=== PATIENT | male | born 1960 | race Caucasian/White ===

== ENCOUNTER → 2017-01-09 | Outpatient (CLI) | payer OTHER | LOC: CIMAGING 07:15 | PROVIDERS: ATTEND Family Medicine | DX: M13.832 Other specified arthritis, left wrist (principal) | CPT/HCPCS: 73110-PO ==

== ENCOUNTER 2017-03-20 05:37 | Day surgery (SDC) | payer OTHER ==
[2017-03-20] MEDS ORDERED: LR 1,000 ML IV ONE (06:06)
[2017-03-20] MEDS ORDERED: LIDOCAINE 1% 2 ML INJ ID PRN (06:06)
[2017-03-20] MEDS ORDERED: BUPIVACAINE 0.5% 30 ML SDV ONE (06:36)
[2017-03-20] MEDS ORDERED: MIDAZOLAM 2 MG/2 ML VIAL IVP ONE (06:59)
--- NOTE | 2017-03-20 07:02 | PDANEPAE ---
ANE History of Present Illness l wrist ligament repair and scaphoid resection ANE Past Medical History - Cardiovascular History Hx Hypertension: Yes Hx Arrhythmias: No Hx Chest Pain: No Hx Coronary Artery / Peripheral Vascular Disease: No Hx CHF / Valvular Disease: No Hx Palpitations: No - Pulmonary History Hx COPD: No Hx Asthma/Reactive Airway Disease: No Hx Recent Upper Respiratory Infection: No Hx Oxygen in Use at Home: No Hx Sleep Apnea: Yes Sleep Apnea Screening Result - Last Documented: Positive Pulmonary History Comment: REDDY/Central apnea on CPAP/ASV - Neurologic History Hx Cerebrovascular Accident: No Hx Seizures: No Hx Dementia: No - Endocrine History Hx Diabetes: No - Renal History Hx Renal Disorders: No - Liver History Hx Hepatic Disorders: No - Neurological & Psychiatric Hx Hx Neurological and Psychiatric Disorders: No - Cancer History Hx Cancer: Yes Cancer History Comment: BASAL CELL SKIN CANCER REMOVED 2011; 03/15/2017 5 YEAR CHECK UP "ALL CLEAR" - Congenital Disorder History Hx Congenital Disorders: No - GI History Hx Gastrointestinal Disorders: No - Chronic Pain History Chronic Pain: Yes (OCCASIONAL BACK PAIN) - Surgical History Prior Surgeries: 2013 : L BUNIONECTOMY "BONE SPUR". 2012 : MOHS SURGERY - LEFT SIDE NECK, BASAL CELL SKIN CANCER. 2012 : LUMBAR SX - L4-L5 MICRODISKECTOMY. 2004 : HIATAL HERNIA REPAIR. 1997 : CERVICAL SPINAL FUSION. 1982 : RADIAL KERATOTOMY SURGERY ANE Review of Systems - Exercise capacity METS (RN): 4 METS ANE Patient History - Allergies Allergies/Adverse Reactions: No Known Allergies Allergy (Unverified 04/20/15 11:25) - Home Medications Home Medications: Amlodipine Besylate 04/20/15 [Last Taken 03/20/17 05:30] Losartan Potassium 04/20/15 [Last Taken 03/19/17 05:30] ASPIRIN 03/15/17 [Last Taken 02/27/17] IBUPROFEN 03/15/17 [Last Taken 03/12/17] Levitra 03/15/17 [Last Taken Unknown] NIACIN 03/15/17 [Last Taken 03/15/17] Vitamin C 03/15/17 [Last Taken 03/13/17] - NPO status NPO Since - Liquids (Date): 03/19/17 NPO Since - Liquids (Time): 22:30 NPO Since - Solids (Date): 03/19/17 NPO Since - Solids (Time): 18:00 - Anes Hx Anes Hx: no prior problems - Smoking Hx Smoking Status: Never smoked Marijuana use: No - Alcohol Use Alcohol Use: Occasionally - Family Anes Hx Family Hx Anesthesia Complications: N/A ANE Labs/Vital Signs - Vital Signs Blood Pressure: 133/93 Heart Rate: 68 Respiratory Rate: 16 O2 Sat (%): 94 Height: 190.5 cm Weight: 99.79 kg ANE Physical Exam - Airway Mallampati Score: Class 1 Mouth exam: normal dental/mouth exam - Pulmonary Pulmonary: no respiratory distress - Cardiovascular Cardiovascular: regular rate and rhythym - ASA Status ASA Status: II (treated REDDY) ANE Anesthesia Plan Anesthesia Plan: GA w LMA (vs Jennifer Block, will d/w Dr. Cm, possible prolonged post op monitoring) Regional Anesthesia: Jennifer block Total IV Anesthesia: possible propofol/chidi secondary to REDDY
--- NOTE | 2017-03-20 07:15 | PDGENHP ---
History & Physical Chief Complaint: Left wrist pain History of Present Illness: Persistent long standing left wrist pain fom arthritis unresponsive to nonoperative management. Relevant Physical Exam: respiratory system appears normal with good air entry. Cardiovascular exam unremarkable. Left thumb basal pain with swelling.
[2017-03-20] MEDS ORDERED: fentaNYL 100 MCG/2 ML INJ ONE ×2 (07:28→09:00)
[2017-03-20] MEDS ORDERED: PROPOFOL/EMULSION 500 MG/50 ML BOTTLE IV ONE (07:29)
[2017-03-20] MEDS ORDERED: ceFAZolin 1 GM VIAL ONE ×2 (07:29)
[2017-03-20] MEDS ORDERED: ONDANSETRON 4 MG/2 ML VIAL ONE (07:29)
[2017-03-20] MEDS ORDERED: LIDOCAINE 2% 5 ML SDV ONE (07:29)
[2017-03-20] MEDS ORDERED: DEXAMETHASONE 4 MG/ML VIAL ONE (07:29)
[2017-03-20] MEDS ORDERED: LIDOCAINE 2% JELLY 5 ML TUBE ONE (07:32)
[2017-03-20] MEDS ORDERED: LR 500 ML IV PRN (08:45)
[2017-03-20] MEDS ORDERED: METOCLOPRAMIDE 10 MG/2 ML VIAL IVP PRN (08:45)
[2017-03-20] MEDS ORDERED: OXYCODONE/APAP 5/325 TAB PO PRN (08:45)
[2017-03-20] MEDS ORDERED: HYDROCODONE/APAP 5/325 TAB PO PRN (08:45)
[2017-03-20] MEDS ORDERED: DEXAMETHASONE 4 MG/ML VIAL IVP PRN (08:45)
[2017-03-20] MEDS ORDERED: MEPERIDINE 25 MG/ML SYR IVP PRN (08:45)
[2017-03-20] MEDS ORDERED: ACETAMINOPHEN 500 MG TAB PO PRN (08:45)
[2017-03-20] MEDS ORDERED: LABETALOL HCL 50 MG/10 ML SYR IVP PRN (08:45)
[2017-03-20] MEDS ORDERED: PROMETHAZINE HCL 25 MG/ML INJ IVP PRN (08:45)
[2017-03-20] MEDS ORDERED: fentaNYL 100 MCG/2 ML INJ IVP PRN (08:45)
[2017-03-20] MEDS ORDERED: NALOXONE HCL 0.4 MG/ML INJ IVP PRN (08:45)
[2017-03-20] MEDS ORDERED: ONDANSETRON 4 MG/2 ML VIAL IVP PRN (08:45)
--- NOTE | 2017-03-20 08:48 | POSTANESTH ---
Post Anesthetic Evaluation Cardiovascular Status: Normal, Stable Respiratory Status: Normal, Stable Level of Consciousness/Mental Status: Can Participate in Eval, Mildly Sleepy, Arousable Pain Control: Adequate, Prn Tx Ordered Nausea/Vomiting Control: Adequate, Prn Tx Ordered Complications Possibly Related to Anesthesia: None Noted
--- NOTE | 2017-03-20 08:51 | POSTOPPROG ---
Post Op Note Date of Operation: 03/20/17 Surgeon: Michael Cm Anesthesiologist: Tera Anesthesia: LMA Pre-op Diagnosis: Post traumatic Arthritis Post-op Diagnosis: same Indication: pain Procedure: tendon interpositional arthroplasty Findings: arthritis Inf/Abcess present in the surg proc area at time of surgery?: No EBL: Minimal Total fluids administered: 700ml Specimen(s): none
[2017-03-20] MEDS: fentaNYL 100 MCG/2 ML INJ IVP PRN ×2 (09:02→09:26)
--- NOTE | 2017-03-20 09:13 | GOP ---
[f rep st] OPERATIVE REPORT DATE OF OPERATION: 03/20/2017 SURGEON: Mihcael Cm MD PREOPERATIVE DIAGNOSIS: Left triscaphoid joint arthritis. POSTOPERATIVE DIAGNOSIS: Left triscaphoid joint arthritis. PROCEDURE PERFORMED: Distal scaphoid excision with tendon interposition arthroplasty. FINDINGS: INDICATIONS: This patient had radial-sided wrist and basal thumb pain and, on x-ray, was found to h ave complete joint space loss at the triscaphoid joint. The carpometacarpal joint fortunately was w ell preserved with evidence of good articular surface, and the same was the case at the radioscaphoi d interval. For that reason, it was decided that distal scaphoid excision with tendon interposition arthroplasty would be a good choice for him. DESCRIPTION OF PROCEDURE: Under general anesthesia, the patient's left arm was prepped and draped i n the usual fashion. Arm tourniquet applied at 250 mmHg. 0.5% plain Marcaine was instilled in the operative area, had a total of 10 cc, and a longitudinal incision was made from the radial styloid t o the carpometacarpal joint of the thumb. Skin and subcutaneous tissue was reflected. First dorsal compartment was opened. It was septated. There was no evidence of inflammation of the abductor lo ngus or extensor brevis. The adductor longus consisted of 3 good-sized slips of tendon. The tendon s were reflected, radial artery and associated veins mobilized and reflected. Triscaphoid joint was exposed through a longitudinal incision in capsule, and periosteum and capsule were elevated from t he radioscaphoid interval, triscaphoid joint, and carpometacarpal joint. Carpometacarpal joint appe ared to be in good condition as was the radioscaphoid interval as had been indicated by x-ray. Mati caphoid joint showed complete articular cartilage loss at both the proximal articular surfaces of tr apezium and trapezoid and distal pole scaphoid. The distal pole scaphoid was excised. About 1 cm o f bone was excised. The cancellous bone was rounded and smoothed with a bone rasp, and then the wou nd was irrigated profusely with body temperature saline to remove all small fragments of bone. Then the roque 2 slips of the abductor longus were excised by elevation of the skin at the radial aspec t of the distal third forearm and transecting the tendon at the musculotendinous junction. The tend on was brought down into the surgical incision, rolled into a jelly roll configuration, and sutured to itself with 4-0 PDS. That tendon ball was then sutured into the wound by suturing the tendon bal l to dorsal and volar capsule. That snugged the ball into place nicely, and then the capsule of the triscaphoid joint was [id number] imbricated and sutured also with 4-0 PDS. This anchored the tendon ball in position very nicely. The capsule at the radioscaphoid interval as well as the carpo metacarpal joint of the thumb was reclosed, and range of motion of the wrist and thumb was tested an d found to glide smoothly. There was no impingement, no crepitation. The wound was irrigated with body temperature saline and then 0.5% plain Marcaine. Then neurovascular and tendinous structures w ere replaced in their anatomic position and skin closed with horizontal mattress sutures of 5-0 Prol chela. A bulky soft pressure dressing was applied, followed by fiberglass thumb spica splint held in place with an Randolph bandage. He tolerated the procedure well. Tourniquet deflation resulted in immed iate pinking of the digits. He was brought to the recovery area where detailed postoperative instru ctions were given prior to discharge. A prescription for Varna and Keflex had been provided preoper atively. He had been given 2 g of Ancef intravenously prior to commencement of surgery. Followup a rrangements in the office for about a week postop for dressing and suture removal and cast applicati on for 3 additional weeks. /[id number]/MODL
[2017-03-20 09:58] VITALS: PULSE 65; RESP 14; TEMP 97.8
[2017-03-20] MEDS ORDERED: HYDROCODONE/APAP 5/325 TAB ONE (10:04)
[2017-03-20 10:38] VITALS: BP 115/74; O2SAT 94
== END 2017-03-20 10:35 | disposition home or self-care (01) ==
LOC: FSGY 05:37
PROVIDERS: ATTEND Specialist
PROC: 0LX80ZZ Transfer Left Hand Tendon, Open Approach (ICD-10-PCS; principal; 2017-03-20 07:15)
PROC: 0PTN0ZZ Resection of Left Carpal, Open Approach (ICD-10-PCS; principal; 2017-03-20 07:15)
DX: M19.132 Post-traumatic osteoarthritis, left wrist (principal); M25.532 Pain in left wrist; G47.33 Obstructive sleep apnea (adult) (pediatric); Z98.1 Arthrodesis status
CPT/HCPCS: J0690; J1100; J2250; J2405; J2704; J3010